=== PATIENT | male | born 1980 | race Caucasian/White ===

== ENCOUNTER 2018-05-31 17:22 | Emergency (ER) | payer SELFPAY ==
[~2018-05-31] VITALS: Ht 180.3 cm; Wt 93.0 kg
[~2018-05-31 17:22] MED LIST: BENZONATATE200 M1 PO; MEDROL4 M1 PO; PROVENTIL HFA6.7 GM INH; ZITHROMAX250 M2 PO
--- NOTE | 2018-05-31 21:47 | ED GENERAL ADULT ---
History of Present Illness General Chief Complaint: Male Genitourinary Problems Stated Complaint: BURNING SENSATION DURING URINATION Source: patient Exam Limitations: no limitations Vital Signs & Intake/Output Vital Signs & Intake/Output Vital Signs Date Time Temp Pulse Resp B/P B/P Pulse O2 O2 Flow FiO2 Mean Ox Delivery Rate 05/31 2205 99.1 85 18 124/71 99 Room Air 05/31 1728 98.6 87 18 118/70 98 Room Air ED Intake and Output 06/01 0000 05/31 1200 Intake Total Output Total Balance Patient 205 lb Weight Weight Reported by Patient Measurement Method Allergies Coded Allergies: Penicillins (ANAPHYLAXIS 03/04/16) amoxicillin (ANAPHYLAXIS 03/04/16) Reconcile Medications Albuterol Sulfate (Proventil Hfa) 6.7 GM HFA.AER.AD 1-2 PUFF INH Q6P PRN SOB Azithromycin (Zithromax) 250 MG TABLET 1 DP PO AD BRONCHITIS 2 the first day followed by 1 for days 2-5 Benzonatate 200 MG CAPSULE 1 TAB PO TID COUGH Methylprednisolone (Medrol) 4 MG TABLET 1 TAB PO AD BRONCHITIS Triage Note: 37 YO MALE TO TRIAGE FOR EVAL OF PENILE DISCHARGE AND BURNING WITH URINATION X2 DAYS AFTER RECICVING ORAL SEX. Triage Nurses Notes Reviewed? yes Onset: Gradual Duration: day(s): Timing: constant HPI: 37 y/o otherwise healthy male presenting with dysuria and white/green penile discharge x2 days. Symptoms began ~1 week after receiving oral sex from a friend. States they did not engage in intercourse. Denies fevers, abd pain, hematuria, back pain, perineal pain, testicular pain. (Nancy Zuñiga) Past History Travel History Traveled to [place] past 21 day No Medical History Any Pertinent Medical History? see below for history Neurological: NONE EENT: NONE Cardiovascular: NONE Respiratory: NONE Gastrointestinal: NONE Hepatic: NONE Renal: NONE Musculoskeletal: NONE Psychiatric: NONE Endocrine: NONE Blood Disorders: NONE Cancer(s): NONE THERAPY DIRECTOR/Reproductive: NONE Surgical History Surgical History: N Psychosocial History What is your primary language Lithuanian Tobacco Use: Never used Family History Hx Contributory? No (Nancy Zuñiga) Review of Systems Review of Systems Constitutional: Reports: no symptoms. EENTM: Reports: no symptoms. Respiratory: Reports: no symptoms. Cardiovascular: Reports: no symptoms. GI: Reports: no symptoms. Genitourinary: Reports: see HPI. Musculoskeletal: Reports: no symptoms. Skin: Reports: no symptoms. Neurological/Psychological: Reports: no symptoms. Hematologic/Endocrine: Reports: no symptoms. Immunologic/Allergic: Reports: no symptoms. All Other Systems: Reviewed and Negative (Nancy Zuñiga) Physical Exam Physical Exam General Appearance: well developed/nourished, no apparent distress, alert, awake , comfortable Comments: Gen.: Well-nourished, well-developed, no acute distress. Head: Normocephalic, atraumatic. Eyes: Normal inspection bilaterally Ears: Normal inspection bilaterally Nose: Normal inspection Neck: Normal inspection Lungs: clear to auscultation bilaterally, normnal breath sounds Heart: regular rate and rhythm Abdomen: soft and non-tender Genitals: no lesions, +green penile discharge, no scortal edema or testicular tenderness Extremities: Normal inspection Neurologic: alert and oriented x3, steady gait Skin: warm and dry Psychiatric: Normal mood and affect, no apparent delusions or hallucinations, behavior appropriate Core Measures ACS in differential dx? No CVA/TIA Diagnosis: No Sepsis Present: No Sepsis Focused Exam Completed? No (Nancy Zuñiga) Progress Differential Diagnoses I considered the following diagnoses in my evaluation of the patient: [ urethritis vs epididymitis vs prostatitis] Plan of Care: Orders Procedure Date/time Status VDRL 05/31 2134 Active TRICHOMONAS 05/31 1745 Complete CHLAMYDIA-GC DNA PROBE 05/31 1733 Active URINALYSIS 05/31 1730 Complete Laboratory Tests 05/31/182147: RPR Titer/FTA Pending 05/31/182147: Hepatitis A IgM Ab Cancelled, Hep Bs Antigen Cancelled, Hep B Core IgM Ab Conf Cancelled, Hepatitis C Antibody Cancelled, HIV 1&2 Ab Western Blot Cancelled 05/31/18 174: Urine Color YEL, Urine Clarity HAZY H, Urine pH 6.0, Ur Specific Thurmond >= 1.030, Urine Protein TRACE H, Urine Ketones NEG, Urine Nitrite NEG, Urine Bilirubin NEG, Urine Urobilinogen 0.2, Ur Leukocyte Esterase SMALL H, Ur Microscopic SEDIMENT EXAMINED, Urine RBC 3-5, Urine WBC > 75 H, Ur Epithelial Cells RARE, Urine Mucus MANY H, Urine Hemoglobin TRACE-INTACT H, Urine Glucose NEG Microbiology 05/31 2140 GENITAL: Trichomonas Preparation - COMP 05/31 1740 URINE ROUT: GC DNA Probe - RECD 05/31 1740 URINE ROUT: Chlamydia DNA Probe (MANOHAR) - RECD Treated for urethritis with 1g azithromycin and 240mg IM gentamycin (pt is anaphylactic to PCN, can receive cephalosporins). Pt requesting full STD testing , panel sent. Counseled on supportive care and strict return precautions. Initial ED EKG: none (Nancy Zuñiga) Departure Departure Disposition: HOME OR SELF CARE Condition: Stable Clinical Impression Primary Impression: Dysuria Secondary Impressions: Penile discharge Referrals: Patient Has No Primary Care Dr (PCP/Family) Additional Instructions: You will receive a phone call in 2-3 days if any of your testing is positive. Return to the emergency department for any new or worsening symptoms per Departure Forms: Customer Survey General Discharge Information (Nancy Zuñiga) PA/ENVIRONMENTAL LAW PROFESSOR Co-Sign Statement Statement: ED Attending supervision documentation- [] I saw and evaluated the patient. I have also reviewed all the pertinent lab results and diagnostic results. I agree with the findings and the plan of care as documented in the PA's/ENVIRONMENTAL LAW PROFESSOR's documentation. [] I have reviewed the ED Record and agree with the PA's/ENVIRONMENTAL LAW PROFESSOR's documentation. [] Additions or exceptions (if any) to the PAs/ENVIRONMENTAL LAW PROFESSOR's note and plan are summarized below: [GC POSITIVE, PT TREATED AT TIME OF VISIT, PT CONTACTED ANDHE LET HIS PARTNER KNOW.] (Khanh MADRID,René Ogden) PA/ENVIRONMENTAL LAW PROFESSOR Co-Sign Statement Statement: ED Attending supervision documentation- [] I saw and evaluated the patient. I have also reviewed all the pertinent lab results and diagnostic results. I agree with the findings and the plan of care as documented in the PA's/ENVIRONMENTAL LAW PROFESSOR's documentation. [] I have reviewed the ED Record and agree with the PA's/ENVIRONMENTAL LAW PROFESSOR's documentation. [] Additions or exceptions (if any) to the PAs/ENVIRONMENTAL LAW PROFESSOR's note and plan are summarized below: [] (Reza Zavala DO) Critical Care Note Critical Care Note Critical Care Time: non-applicable (Nancy Zuñiga)
[2018-05-31 22:05] VITALS: BP 124/71
== END 2018-05-31 22:06 ==
LOC: ERH 17:22
DX: R30.0 Dysuria (principal); R36.9 Urethral discharge, unspecified
CPT/HCPCS: 81001; 87389; 87491; 87591; 96372; J1580; J3101